=== PATIENT | female | born 1940 | race Two or more races ===

== ENCOUNTER 2017-07-28 12:19 | Inpatient (IN) | payer MEDICARE, MEDICAID ==
[~2017-07-28] VITALS: Ht 162.6 cm; Wt 77.1 kg
[2017-07-28] MEDS ORDERED: ATOR10TA PO (13:14)
[2017-07-28] MEDS ORDERED: DIAZ2TAB PO ×2 (13:14)
[2017-07-28] MEDS ORDERED: MULT-213 PO (13:14)
[2017-07-28] MEDS ORDERED: PANT40TA2 PO (13:14)
[2017-07-28] MEDS ORDERED: ISOS30TA47 PO (13:14)
[2017-07-28] MEDS ORDERED: CLOP75TA2 PO (13:14)
[2017-07-28] MEDS ORDERED: MAGN400O6 PO (13:14)
[2017-07-28] MEDS ORDERED: BIMA2.5D5 EACHEYE (13:14)
[2017-07-28] MEDS ORDERED: BISA10SU8 RC (13:14)
[2017-07-28] MEDS ORDERED: OMEG1CAP55 PO (13:14)
[2017-07-28] MEDS ORDERED: QUET25TA PO (13:14)
[2017-07-28] MEDS ORDERED: METF500T4 PO (13:14)
[2017-07-28] MEDS ORDERED: DEXT1CAP3 PO (13:14)
[2017-07-28] MEDS ORDERED: TEMA7.5C12 PO (13:14)
[2017-07-28] MEDS ORDERED: INSU100I4 SQ (13:14)
[2017-07-28] MEDS ORDERED: CALC-838 PO (13:14)
[2017-07-28] MEDS ORDERED: GUAI120S2 PO (13:14)
[2017-07-28] MEDS ORDERED: HYDR-552 PO ×2 (13:14)
[2017-07-28] MEDS ORDERED: MEMA10TA PO (13:14)
[2017-07-28] MEDS ORDERED: INSU3INS6 SQ (13:14)
[2017-07-28] MEDS ORDERED: EZET10TA PO (13:14)
[2017-07-28] MEDS ORDERED: CALC500T63 PO (13:14)
--- NOTE | 2017-07-28 13:40 | NUR ---
REPORT GIVEN TO MARY ROSAS FOR CHUY. ROOM 325-2
[2017-07-28 14:00] VITALS: BP 148/97
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
[2017-07-28] MEDS ORDERED: GUAIFENESIN/D-METHORPHAN HB 5 ML UDC PO PRN (15:00)
[2017-07-28] MEDS ORDERED: ONDANSETRON HCL/PF 4 MG/2 ML VIAL IVP PRN (15:00)
[2017-07-28] MEDS ORDERED: Z GUARD REMEDY 2 OZ OINT TP PRN (15:00)
[2017-07-28] MEDS ORDERED: ACETAMINOPHEN 325 MG TABLET PO PRN (15:00)
[2017-07-28] MEDS ORDERED: HYDROCODONE/APAP 5/325MG 1 EACH TABLET PO PRN ×2 (15:00)
[2017-07-28] MEDS ORDERED: ZOLPIDEM TARTRATE 5 MG TABLET PO PRN (15:00)
[2017-07-28] MEDS ORDERED: TEMAZEPAM 7.5 MG CAPSULE PO PRN (15:00)
[2017-07-28] MEDS ORDERED: DEXTROSE 50%-WATER 50 ML DISP.SYRIN IV PRN (15:00)
[2017-07-28] MEDS ORDERED: DIAZEPAM 2 MG TABLET PO PRN (15:00)
[2017-07-28] MEDS ORDERED: BISACODYL SUPP (10 MG) 10 MG/SUPP.RECT SUPP.RECT RC PRN (15:00)
[2017-07-28 16:00] VITALS: BP 112/81
[2017-07-28] MEDS: MEMANTINE HCL 5 MG TABLET PO SCH (18:21)
[2017-07-28] MEDS: MAGNESIUM HYDROXIDE 30 ML UDC PO SCH (18:21)
[2017-07-28] MEDS: QUETIAPINE FUMARATE 25 MG TABLET PO SCH (18:21)
[2017-07-28] MEDS: METFORMIN 500 MG TABLET PO SCH (18:21)
[2017-07-28] MEDS: BLOOD SUGAR DIAGNOSTIC 1 EACH STRIP IN SCH ×2 (18:23→22:01)
[2017-07-28] MEDS: INSULIN REGULAR, HUMAN 100 UNIT/ML 3 ML VIAL SQ PRN ×2 (18:27→22:08)
[2017-07-28 20:00] VITALS: BP 177/96
--- NOTE | 2017-07-28 20:00 | NUR ---
RN CLOSING NOTES PT. IS IN BED A&OX1, CONFUSED. BREATHING UNLABORED, AND EVENLY ON OXYGEN AT 2L/MIN VIA NASAL CANNULA. BED IS IN LOWEST, AND LOCKED POSITION. CALL LIGHT WITHIN REACH. 2 SIDE RAILS UP, WILL ENDORSE REPORT TO NURSE.
[2017-07-28] MEDS ORDERED: INSULIN DETEMIR 100 UNIT/ML CARTRIDGE SQ SCH (21:00)
[2017-07-28] MEDS: DIAZEPAM 2 MG TABLET PO SCH (21:31)
[2017-07-28] MEDS: LATANOPROST EYE DROP 0.005% 2.5 ML BOTTLE EACHEYE SCH (21:31)
[2017-07-28] MEDS: ATORVASTATIN 10 MG TABLET PO SCH (21:31)
[2017-07-28] MEDS ORDERED: BIMATOPROST 2.5 ML DROPS OP SCH (22:00)
[2017-07-28 22:30] VITALS: BP 154/94
--- NOTE | 2017-07-29 06:00 | NUR ---
RN NOTES No significant change in condition. Blood sugar check done, no s/sof hypo/hyperglycemia. All needs attended. Urine sample collected and sent to the pharmacy. Will continue to monitor.
[2017-07-29] MEDS: BLOOD SUGAR DIAGNOSTIC 1 EACH STRIP IN SCH ×4 (06:19→21:24)
[2017-07-29 07:02] LABS: APPEARANCE,URINE SL CLOUDY (CLEAR); BILIRUBIN,URINE NEGATIVE (NEGATIVE); BLOOD, URINE 1+ Ery/uL (NEGATIVE); COLOR,URINE YELLOW (YELLOW); KETONES,URINE NEGATIVE (NEGATIVE); LEUKOCYTE ESTERASE ,URINE 3+ (NEGATIVE); NITRITE, URINE NEGATIVE (NEGATIVE); PROTEIN,URINE NEGATIVE (NEGATIVE); UGLUCOSE NEGATIVE (NEGATIVE); UROBILINOGEN,URINE 0.2 EU/dL (0.2)
[2017-07-29 08:00] VITALS: BP 115/63
[2017-07-29 08:57] LABS: BASOPHILS # (AUTO) 0.1 /CMM (0.0-0.2); BASOPHILS % (AUTO) 0.7 % (0.0-2.0); EOSINOPHILS # (AUTO) 0.4 /CMM (0.0-0.7); EOSINOPHILS % (AUTO) 2.5 % (0.0-6.0); HEMATOCRIT 40 % (33-45); HEMOGLOBIN 13.4 g/dL (11.5-14.8); LYMPHOCYTES # (AUTO) 7.8 /CMM (0.8-4.8); LYMPHOCYTES % (AUTO) 48.1 % (20.0-44.0); MEAN CORPUSCULAR HEMOGLOBIN 30 PG (26.0-33.0); MEAN CORPUSCULAR HGB CONC 34 g/dl (31.0-36.0); MEAN CORPUSCULAR VOLUME 89 fL (82-100); MONOCYTES # (AUTO) 0.9 /CMM (0.1-1.30); MONOCYTES % (AUTO) 5.8 % (2.0-12.0); NEUTROPHILS # (AUTO) 6.9 /CMM (1.8-8.9); NEUTROPHILS % (AUTO) 42.9 % (43.0-81.0); PLATELET COUNT (AUTO) 189 /CMM (150-450); RDW COEFFICIENT OF VARIATION 12.9 (11.5-15.0); RED BLOOD CELL COUNT(AUTO) 4.52 MIL/uL (4.0-5.2); WHITE BLOOD COUNT (AUTO) 16.1 K/uL (4.3-11.0)
[2017-07-29] MEDS ORDERED: ENOXAPARIN SODIUM 40 MG/0.4 ML DISP.SYRIN SQ SCH (09:00)
--- NOTE | 2017-07-29 09:00 | NUR ---
RN NOTES RECEIVED PATIENT IN THE BED SLEEPING NO RESPIRATORY DISTRESS, NO IV ACCESS, PATIENT ON O2-2L. NO RESPIRATORY DISTRESS, PATIENT TOTAL CARE, ASSIST EATING, ASSIST TURN AND REPOSITION Q 2 HR. NEEDS ATTENDED AND ANTICIPATED, CALL LIGHT WITHIN TO REACH, CONTINUED MONITORING.
[2017-07-29 09:13] LABS: CARBON DIOXIDE 30 mmol/L (21-32); CHLORIDE 108 mmol/L (98-107); CREATININE 0.8 mg/dL (0.6-1.3); GLUCOSE 107 mg/dL (74-106); MAGNESIUM 2.3 mg/dL (1.8-2.4); PHOSPHORUS 3.3 mg/dL (2.5-4.9); POTASSIUM 4.6 mmol/L (3.5-5.1); SODIUM SERUM 143 mmol/L (136-145); UREA NITROGEN, BLOOD 20 mg/dL (7-18)
[2017-07-29 09:22] LABS: CHOLESTEROL 112 mg/dL (<200); HDL CHOLESTEROL 29 mg/dL (40-60); LDL 57 mg/dL (0-99); THYROID STIMULATING HORMONE 2.076 uIU/mL (0.358-3.74); TRIGLYCERIDES 254 mg/dL (30-150)
[2017-07-29] MEDS: MAGNESIUM HYDROXIDE 30 ML UDC PO SCH ×2 (10:18→17:49)
[2017-07-29] MEDS: QUETIAPINE FUMARATE 25 MG TABLET PO SCH ×2 (10:18→17:49)
[2017-07-29] MEDS: CALCIUM CARBONATE 500 MG TAB.CHEW PO SCH (10:18)
[2017-07-29] MEDS: METFORMIN 500 MG TABLET PO SCH ×2 (10:18→17:49)
[2017-07-29] MEDS: MEMANTINE HCL 5 MG TABLET PO SCH ×2 (10:19→17:49)
[2017-07-29] MEDS: MULTIVITAMIN/LUTEIN/MINERALS 1 TAB PO SCH (10:19)
[2017-07-29] MEDS: CALCIUM CARB 600MG /VIT D 1 EACH TABLET PO SCH (10:20)
[2017-07-29] MEDS: ISOSORBIDE DINITRATE (10MG) 10 MG TABLET PO SCH (10:20)
[2017-07-29] MEDS: PANTOPRAZOLE 40 MG TABLET.DR PO SCH (10:21)
[2017-07-29] MEDS: EZETIMIBE 10 MG TABLET PO SCH (10:21)
[2017-07-29] MEDS: CLOPIDOGREL BISULFATE 75 MG TABLET PO SCH (10:22)
[2017-07-29] MEDS: HYDROCODONE/APAP 5/325MG 1 EACH TABLET PO SCH (10:39)
[2017-07-29] MEDS: ENOXAPARIN SODIUM 40 MG/0.4 ML DISP.SYRIN SQ SCH (10:41)
[2017-07-29 11:07] LABS: BACTERIA,URINE 1+ /HPF (None Seen); SQUAMOUS EPITHELIAL CELL,UR Few /HPF (None Seen); WBC,URINE TOO NUMEROUS TO COUN /HPF (0-3)
[2017-07-29] MEDS: INSULIN DETEMIR 100 UNIT/ML CARTRIDGE SQ SCH (11:10)
--- NOTE | 2017-07-29 13:00 | NUR ---
RN NOTES BS-155 MG/DL, 2 UNITS OF COVERAGE GIVEN, V/S STABLE, ASSIST TURN AND REPOSITION Q2 HR, PATIENT ASPIRATION PRECAUTION, HOB ELEVATED,NO ACUTE DISTRESS. DVT PUMP ON. CALL LIGHT WITHIN TO REACH. CONTINUED MONITORING.
[2017-07-29] MEDS: INSULIN REGULAR, HUMAN 100 UNIT/ML 3 ML VIAL SQ PRN ×3 (15:20→21:40)
[2017-07-29 16:00] VITALS: BP 142/70
--- NOTE | 2017-07-29 18:00 | NUR ---
RN NOTES PATIENT IN THE BED EATING, HOB ELEVATED. BS-151 MG/DL, 2 UNITS OF COVERAGE GIVEN, V/S STABLE, SCHEDULED MEDICATION ADMINISTERED. FAMILY NEXT TO THE BED, ASSIST PATIENT EATING, OFFERED SOME FLUIDS. NEEDS ATTENDED AND ANTICIPATED, CALL LIGHT WITHIN TO REACH, DVT PUMP ON, SAFETY PRECAUTION MAINTAINED ALL THE TIME, ENDORSED ONCOMING NURSE FOR CONTINUATION OF CARE.
--- NOTE | 2017-07-29 19:25 | NUR ---
MS RN OPENING NOTES: RECEIVED PT AND IS RESTING COMFORTABLY IN BED. PT ON 2LPM VIA NC AND IS TOLERATING WELL. PT IS A/OX1 AND IS CONFUSED. NO IV ACCESS NOTED. CALL LIGHT WITHIN PT'S REACH. BED KEPT IN LOW, LOCKED POSITION, AND SIDE RAILS X 2 UP. WILL CONTINUE TO MONITOR PT.
[2017-07-29 20:00] VITALS: BP 138/67
[2017-07-29] MEDS: DIAZEPAM 2 MG TABLET PO SCH (21:23)
[2017-07-29] MEDS: LATANOPROST EYE DROP 0.005% 2.5 ML BOTTLE EACHEYE SCH (21:23)
[2017-07-29] MEDS: ATORVASTATIN 10 MG TABLET PO SCH (21:23)
--- NOTE | 2017-07-29 21:41 | NUR ---
MS RN NOTES: BLOOD SUGAR WAS 126. NO INSULIN WAS ADMINISTERED. WILL CONTINUE TO MONITOR PT.
--- NOTE | 2017-07-30 00:15 | NUR ---
MS RN NOTES: DR. HENDERSON ON FLOOR AND INFORMED HIM THAT PT HAS NO IV ACCESS. OKAY WITH THAT.
[2017-07-30] MEDS: BLOOD SUGAR DIAGNOSTIC 1 EACH STRIP IN SCH ×4 (06:01→21:11)
[2017-07-30] MEDS: INSULIN REGULAR, HUMAN 100 UNIT/ML 3 ML VIAL SQ PRN ×4 (06:30→21:10)
--- NOTE | 2017-07-30 06:31 | NUR ---
MS RN NOTES: BLOOD SUGAR THIS AM WAS 139. 2 UNITS OF INSULIN WILL BE ADMINISTERED. WILL CONTINUE TO MONITOR PT.
--- NOTE | 2017-07-30 06:57 | NUR ---
MS RN CLOSING NOTES: ALL NEEDS WERE ATTENDED AND ANTICIPATED FOR. PT ON 2LPM VIA NC AND IS TOLERATING WELL. PT IS A/OX1 AND IS CONFUSED. NO IV ACCESS NOTED. MD AWARE. CALL LIGHT WITHIN PT'S REACH. BED KEPT IN LOW, LOCKED POSITION, AND SIDE RAILS X 2 UP. WILL ENDORSE TO AM NURSE FOR CHUY.
--- NOTE | 2017-07-30 07:30 | NUR ---
PT RECEIVED RESTING COMFORTABLY IN BED WITH EYES CLOSED. NO S/S OR C/O PAIN OR DISTRESS NOTED. SIDE RAILS UP X2 CALL LIGHT LEFT WITHIN REACH. WILL CONTINUE PLAN OF CARE.
[2017-07-30 08:00] VITALS: BP 150/76
[2017-07-30 08:10] LABS: BASOPHILS % (AUTO) 0.1 % (0.0-2.0); EOSINOPHILS # (AUTO) 0.4 /CMM (0.0-0.7); EOSINOPHILS % (AUTO) 2.9 % (0.0-6.0); HEMATOCRIT 41 % (33-45); HEMOGLOBIN 13.4 g/dL (11.5-14.8); LYMPHOCYTES # (AUTO) 4.2 /CMM (0.8-4.8); LYMPHOCYTES % (AUTO) 34.5 % (20.0-44.0); MEAN CORPUSCULAR HEMOGLOBIN 30 PG (26.0-33.0); MEAN CORPUSCULAR HGB CONC 33 g/dl (31.0-36.0); MEAN CORPUSCULAR VOLUME 90 fL (82-100); MONOCYTES # (AUTO) 0.6 /CMM (0.1-1.30); MONOCYTES % (AUTO) 5.2 % (2.0-12.0); NEUTROPHILS % (AUTO) 57.3 % (43.0-81.0); PLATELET COUNT (AUTO) 178 /CMM (150-450); RDW COEFFICIENT OF VARIATION 12.9 (11.5-15.0); RED BLOOD CELL COUNT(AUTO) 4.54 MIL/uL (4.0-5.2); WHITE BLOOD COUNT (AUTO) 12.2 K/uL (4.3-11.0)
[2017-07-30 08:16] LABS: CALCIUM, SERUM 8.8 mg/dL (8.5-10.1); CARBON DIOXIDE 31 mmol/L (21-32); CHLORIDE 105 mmol/L (98-107); GLUCOSE 126 mg/dL (74-106); POTASSIUM 4.6 mmol/L (3.5-5.1); SODIUM SERUM 141 mmol/L (136-145); UREA NITROGEN, BLOOD 28 mg/dL (7-18)
[2017-07-30] MEDS: CLOPIDOGREL BISULFATE 75 MG TABLET PO SCH (08:35)
[2017-07-30] MEDS: HYDROCODONE/APAP 5/325MG 1 EACH TABLET PO SCH (08:35)
[2017-07-30] MEDS: QUETIAPINE FUMARATE 25 MG TABLET PO SCH ×2 (08:35→18:04)
[2017-07-30] MEDS: METFORMIN 500 MG TABLET PO SCH ×2 (08:35→18:04)
[2017-07-30] MEDS: MEMANTINE HCL 5 MG TABLET PO SCH ×2 (08:35→18:04)
[2017-07-30] MEDS: EZETIMIBE 10 MG TABLET PO SCH (08:35)
[2017-07-30] MEDS: CALCIUM CARBONATE 500 MG TAB.CHEW PO SCH (08:35)
[2017-07-30] MEDS: MULTIVITAMIN/LUTEIN/MINERALS 1 TAB PO SCH (08:35)
[2017-07-30] MEDS: MAGNESIUM HYDROXIDE 30 ML UDC PO SCH ×2 (08:35→18:04)
[2017-07-30] MEDS: ENOXAPARIN SODIUM 40 MG/0.4 ML DISP.SYRIN SQ SCH (08:36)
[2017-07-30] MEDS: CALCIUM CARB 600MG /VIT D 1 EACH TABLET PO SCH (08:36)
[2017-07-30] MEDS: PANTOPRAZOLE 40 MG TABLET.DR PO SCH (08:36)
[2017-07-30] MEDS: ISOSORBIDE DINITRATE (10MG) 10 MG TABLET PO SCH (08:36)
[2017-07-30] MEDS: INSULIN DETEMIR 100 UNIT/ML CARTRIDGE SQ SCH ×2 (08:37→20:59)
[2017-07-30] MEDS: CEFTRIAXONE 1 G in IV D5W 50 ML IV SCH (11:05)
[2017-07-30 16:00] VITALS: BP 129/60
--- NOTE | 2017-07-30 18:56 | NUR ---
CHANGE OF SHIFT REPORT PT RESTING COMFORTABLY IN BED. NO S/S OR C/O PAIN OR DISTRESS NOTED. SIDE RAILS UP X2, CALL LIGHT LEFT WITHIN REACH. PT KEPT CLEAN, DRY, AND COMFORTABLE. NO SIGNIFICANT CHANGES SINCE PREVIOUS SHIFT. WILL GIVE REPORT TO HARVEY ROSAS.
--- NOTE | 2017-07-30 19:52 | NUR ---
RN MS OPENING NOTE PT RECEIVED IN NO ACUTE DISTRESS AT THIS TIME. A/O X1 CONFUSED AND UNABLE TO SPEAK CLEARLY WELL NOT ABLE TO MAKE NEEDS KNOWN. ASPIRATION PRECAUTIONS DURING THE SHIFT. NO SOB NOTED AT THIS TIME AND NO S/S OF PAIN AT THIS MOMENT. PT HAS LFA 22G THAT IS CLEAN DRY AND INTACT. COMFORT AND SAFETY MEASURES TO BE ENSURED DURING THE SHIFT. WILL CONTINUE TO MONITOR FOR ANY CHANGES DURING THE SHIFT.
[2017-07-30 20:14] VITALS: BP 115/56
[2017-07-30] MEDS: LATANOPROST EYE DROP 0.005% 2.5 ML BOTTLE EACHEYE SCH (21:01)
[2017-07-30] MEDS: DIAZEPAM 2 MG TABLET PO SCH (21:02)
[2017-07-30] MEDS: ATORVASTATIN 10 MG TABLET PO SCH (21:02)
[2017-07-31] MEDS: PANTOPRAZOLE 40 MG TABLET.DR PO SCH (06:37)
[2017-07-31] MEDS: BLOOD SUGAR DIAGNOSTIC 1 EACH STRIP IN SCH ×2 (06:41→12:09)
[2017-07-31 06:46] LABS: BASOPHILS % (AUTO) 0.2 % (0.0-2.0); EOSINOPHILS # (AUTO) 0.4 /CMM (0.0-0.7); EOSINOPHILS % (AUTO) 3.6 % (0.0-6.0); HEMATOCRIT 42 % (33-45); LYMPHOCYTES # (AUTO) 4.3 /CMM (0.8-4.8); LYMPHOCYTES % (AUTO) 38.2 % (20.0-44.0); MEAN CORPUSCULAR HEMOGLOBIN 30 PG (26.0-33.0); MEAN CORPUSCULAR HGB CONC 33 g/dl (31.0-36.0); MEAN CORPUSCULAR VOLUME 90 fL (82-100); MONOCYTES # (AUTO) 0.6 /CMM (0.1-1.30); MONOCYTES % (AUTO) 5.7 % (2.0-12.0); NEUTROPHILS # (AUTO) 5.8 /CMM (1.8-8.9); NEUTROPHILS % (AUTO) 52.3 % (43.0-81.0); PLATELET COUNT (AUTO) 186 /CMM (150-450); RDW COEFFICIENT OF VARIATION 12.8 (11.5-15.0); RED BLOOD CELL COUNT(AUTO) 4.69 MIL/uL (4.0-5.2); WHITE BLOOD COUNT (AUTO) 11.2 K/uL (4.3-11.0)
[2017-07-31 07:02] LABS: CALCIUM, SERUM 9.1 mg/dL (8.5-10.1); CARBON DIOXIDE 30 mmol/L (21-32); CHLORIDE 107 mmol/L (98-107); GLUCOSE 123 mg/dL (74-106); POTASSIUM 4.1 mmol/L (3.5-5.1); SODIUM SERUM 143 mmol/L (136-145); UREA NITROGEN, BLOOD 29 mg/dL (7-18)
--- NOTE | 2017-07-31 07:30 | NUR ---
RN NOTES RECEIVED PATIENT IN BED ASLEEP WITH BREATHING NORMAL, EVEN AND UNLABORED. NO SOB NOTED. NO ACUTE DISTRESS NOTED. ON ROOM AIR, SATURATING WELL. IV LFA IS PATENT AND INTACT, NO INFILTRATION NOTED BOWEL SOUND PRESENT. PULSES PRESENT. SAFETY MEASURE OBSERVED. ALL NEEDS ATTENDED. CALL LIGHT WITH IN REACH. WILL CONT TO MONITOR.
[2017-07-31 08:00] VITALS: BP 138/76
[2017-07-31 08:28] VITALS: BP 138/76
[2017-07-31] MEDS: EZETIMIBE 10 MG TABLET PO SCH (09:09)
[2017-07-31] MEDS: CALCIUM CARBONATE 500 MG TAB.CHEW PO SCH (09:09)
[2017-07-31] MEDS: CALCIUM CARB 600MG /VIT D 1 EACH TABLET PO SCH (09:09)
[2017-07-31] MEDS: MAGNESIUM HYDROXIDE 30 ML UDC PO SCH ×2 (09:09→17:18)
[2017-07-31] MEDS: METFORMIN 500 MG TABLET PO SCH ×2 (09:10→17:18)
[2017-07-31] MEDS: QUETIAPINE FUMARATE 25 MG TABLET PO SCH ×2 (09:10→17:18)
[2017-07-31] MEDS: MEMANTINE HCL 5 MG TABLET PO SCH ×2 (09:10→17:18)
[2017-07-31] MEDS: CLOPIDOGREL BISULFATE 75 MG TABLET PO SCH (09:10)
[2017-07-31] MEDS: HYDROCODONE/APAP 5/325MG 1 EACH TABLET PO SCH (09:11)
[2017-07-31] MEDS: ISOSORBIDE DINITRATE (10MG) 10 MG TABLET PO SCH (09:11)
[2017-07-31] MEDS: ENOXAPARIN SODIUM 40 MG/0.4 ML DISP.SYRIN SQ SCH (09:12)
[2017-07-31] MEDS: INSULIN DETEMIR 100 UNIT/ML CARTRIDGE SQ SCH (09:19)
[2017-07-31] MEDS: MULTIVITAMIN/LUTEIN/MINERALS 1 TAB PO SCH (09:23)
[2017-07-31] MEDS: CEFTRIAXONE 1 G in IV D5W 50 ML IV SCH (10:02)
[2017-07-31] MEDS: INSULIN REGULAR, HUMAN 100 UNIT/ML 3 ML VIAL SQ PRN (12:10)
[2017-07-31 16:00] VITALS: BP 121/70
--- NOTE | 2017-07-31 17:20 | NUR ---
RN NOTES PATIENT DISCHARGED IN STABLE CONDITION WITH BREATHING NORMAL, EVEN AND UNLABORED. NO SOB NOTED. NO ACUTE DISTRESS NOTED. ON ROOM AIR, SATURATING WELL. DISCHARGE INSTRUCTION GIVEN TO LIZ MASON IN SNF. UNDERSTOOD WELL WITH FEEDBACK. KEPT CLEAN, DRY AND COMFORTABLE. ALL NEEDS ATTENDED. PATIENT LEFT VIA AMBULANCE IN STABLE CONDITION.
== END 2017-07-31 18:53 | DRG 917 ==
LOC: ER 12:20 → MED 13:49
PROVIDERS: ADMIT Internal Medicine; ATTEND Internal Medicine
DX: T59.811A Toxic effect of smoke, accidental (unintentional), initial encounter (principal); N17.0 Acute kidney failure with tubular necrosis; J96.01 Acute respiratory failure with hypoxia; N39.0 Urinary tract infection, site not specified; F25.9 Schizoaffective disorder, unspecified; J70.5 Respiratory conditions due to smoke inhalation; E11.9 Type 2 diabetes mellitus without complications; B96.89 Other specified bacterial agents as the cause of diseases classified elsewhere; E66.9 Obesity, unspecified; E78.5 Hyperlipidemia, unspecified; F32.9 Major depressive disorder, single episode, unspecified; H40.9 Unspecified glaucoma; I10 Essential (primary) hypertension; I25.10 Atherosclerotic heart disease of native coronary artery without angina pectoris; K21.9 Gastro-esophageal reflux disease without esophagitis; M79.0 Rheumatism, unspecified; M79.3 Panniculitis, unspecified; Y92.129 Unspecified place in nursing home as the place of occurrence of the external cause; Z68.29 Body mass index [BMI] 29.0-29.9, adult; Z79.84 Long term (current) use of oral hypoglycemic drugs
CPT/HCPCS: 36415; 80048-TC; 80061-TC; 81000-TC; 82962-TC; 83735-TC; 84100-TC; 84443-TC; 85025-TC; 87081-TC; 87086-TC; 87186-TC; A4606; J0696; J1650; J1815; J7050; J7060; Z7610